=== PATIENT | male | born 1995 | race Caucasian/White ===

== ENCOUNTER 2020-08-08 22:43 | Emergency (ER) | payer SELFPAY ==
[~2020-08-08] VITALS: Ht 172.7 cm; Wt 54.5 kg
[2020-08-08 22:52] VITALS: BP 162/92; Ht 172.7 cm; Wt 54.5 kg
[2020-08-08 23:39] LABS: BASOPHILS 0.2 % (0-2); EOSINOPHILS 0.9 % (0-7); HEMATOCRIT 43.5 % (42.0-54.0); HEMOGLOBIN 15.7 g/dL (13.5-17.5); IMMATURE GRANULOCYTES 0.2 % (0-5); LYMPHOCYTES 32.1 % (15-50); MCH 33.1 pg (26.0-34.0); MCHC 36.1 g/dL (31.0-37.0); MCV 91.8 fL (80.0-100.0); MEAN PLATELET VOLUME 9.2 fL (7.4-10.4); MONOCYTES 8.9 % (2-11); NEUTROPHILS 57.7 % (40-80); PLATELET COUNT 168 10x3/uL (130-400); RBC 4.74 10x6/uL (4.20-6.10); RDW 12.7 % (11.5-14.5); WBC 5.6 10x3/uL (4.8-10.8)
[2020-08-08 23:50] LABS: CALC OSMOLALITY 280 mosm/kg (275-300); CALCIUM 9.1 mg/dL (8.5-10.1); CARBON DIOXIDE 28.5 mmol/L (21.0-32.0); CHLORIDE - SERUM 103 mmol/L (98-107); CREATININE - SERUM 0.9 mg/dL (0.6-1.3); GLUCOSE 99 mg/dL (74-106); POTASSIUM - SERUM 3.5 mmol/L (3.5-5.1); SODIUM 141 mmol/L (136-145); UREA NITROGEN 13 mg/dL (7-18); eGFR NON AFRICAN AMERICAN > 90 mL/min (90-120)
[2020-08-08 23:55] LABS: ALBUMIN 4.6 g/dL (3.4-5.0); ALKALINE PHOSPHATASE 48 U/L (30-120); ALT (SGPT) 42 U/L (10-68); BILIRUBIN - TOTAL 0.79 mg/dL (0.2-1.3); PROTEIN - SERUM 7.4 g/dL (6.4-8.2)
[2020-08-09] MEDS ORDERED: AUGMENTIN 875-11 TAB PO (00:47)
[2020-08-09] MEDS ORDERED: HYDROCODON-ACE1 EA10 PO (00:47)
== END 2020-08-09 00:57 | disposition home or self-care (01) ==
LOC: D.ER 22:43
PROVIDERS: Family Medicine
DX: S61.452A Open bite of left hand, initial encounter (principal); S61.451A Open bite of right hand, initial encounter; W54.0XXA Bitten by dog, initial encounter; Y93.9 Activity, unspecified; Y92.9 Unspecified place or not applicable; S62.202A Unspecified fracture of first metacarpal bone, left hand, initial encounter for closed fracture; G62.9 Polyneuropathy, unspecified

== ENCOUNTER 2020-08-15 22:51 | Emergency (ER) | payer MEDICAID ==
[~2020-08-15] VITALS: Ht 172.7 cm; Wt 65.9 kg
[~2020-08-15 22:51] MED LIST: AUGMENTIN 875-11 TAB PO; HYDROCODON-ACE1 EA10 PO
[2020-08-15 22:56] VITALS: BP 142/77; Ht 172.7 cm; Wt 65.9 kg
[2020-08-15 23:22] LABS: BASOPHILS 0.2 % (0-2); EOSINOPHILS 0.7 % (0-7); HEMATOCRIT 44.4 % (42.0-54.0); HEMOGLOBIN 15.8 g/dL (13.5-17.5); IMMATURE GRANULOCYTES 0.3 % (0-5); LYMPHOCYTES 23.9 % (15-50); MCH 33.3 pg (26.0-34.0); MCHC 35.6 g/dL (31.0-37.0); MCV 93.5 fL (80.0-100.0); MEAN PLATELET VOLUME 9.5 fL (7.4-10.4); MONOCYTES 6.7 % (2-11); NEUTROPHILS 68.2 % (40-80); PLATELET COUNT 168 10x3/uL (130-400); RBC 4.75 10x6/uL (4.20-6.10); RDW 12.8 % (11.5-14.5); WBC 6.1 10x3/uL (4.8-10.8)
[2020-08-15 23:29] LABS: CALC OSMOLALITY 279 mosm/kg (275-300); CHLORIDE - SERUM 105 mmol/L (98-107); GLUCOSE 106 mg/dL (74-106); POTASSIUM - SERUM 3.4 mmol/L (3.5-5.1); SODIUM 139 mmol/L (136-145); UREA NITROGEN 17 mg/dL (7-18); eGFR NON AFRICAN AMERICAN > 90 mL/min (90-120)
[2020-08-15] MEDS ORDERED: VOLTAREN75 MG PO (23:34)
[2020-08-15] MEDS ORDERED: CLEOCIN HCL300 MG PO (23:34)
[2020-08-15 23:35] LABS: ALBUMIN 4.2 g/dL (3.4-5.0); ALKALINE PHOSPHATASE 51 U/L (30-120); ALT (SGPT) 43 U/L (10-68); BILIRUBIN - TOTAL 0.59 mg/dL (0.2-1.3); C-REACTIVE PROTEIN 1.6 mg/dL (0.0-0.9); PROTEIN - SERUM 7.7 g/dL (6.4-8.2)
--- NOTE | 2020-08-15 23:37 | NUR ---
DR. MEJIAS NOTIFIED AND REVIEWED PATIENT'S BEHAVIOR AND ASSESSMENT RESULTS. PATIENT IS AT LOW RISK PER DR. DONIS. DR. MEJIAS SAYS TO GIVE PATIENT RESOURCES. RECSOURCES REVIEWED WITH PATIENT AND HE VERBALIZES UNDERSTANDING.
== END 2020-08-16 00:19 | disposition home or self-care (01) ==
LOC: D.ER 22:51
PROVIDERS: Family Medicine
DX: L02.419 Cutaneous abscess of limb, unspecified (principal); R79.82 Elevated C-reactive protein (CRP); F19.10 Other psychoactive substance abuse, uncomplicated; G62.9 Polyneuropathy, unspecified